=== PATIENT | male | born 1975 | race African-American/Black ===

== ENCOUNTER 2025-01-16 15:38 | Emergency (ER) | payer OTHER ==
[~2025-01-16] VITALS: Ht 180.3 cm; Wt 84.0 kg
[2025-01-16 15:41] VITALS: BP 134/103; PULSE 109; RESP 18; TEMP 98; O2SAT 95
--- NOTE | 2025-01-16 15:53 | ED.PDOC ---
Betzaida. trauma (HPI) HPI Comments A 49 YEAR OLD MALE PRESENTS TO THE ED WITH COMPLAINT OF HEADACHE, NECK PAIN, AND RIGHT SHOULDER PAIN. PATIENT STATES HE WAS AT WORK YESTERDAY AND HE WAS DRIVING HIS FORKLIFT AND A ROLL OF PLASTIC ACCIDENTALLY FELL AND HIT THE RIGHT SIDE OF HIS HEAD AND SHOULDER. PATIENT REPORTS HE IS NOW EXPERIENCING RIGHT- SIDED HEADACHE, NECK PAIN, AND RIGHT SHOULDER PAIN. PATIENT DENIES LOC, FEVER, CHILLS, SHORTNESS OF BREATH, CHEST PAIN, ABDOMINAL PAIN, NAUSEA, VOMITING, OR OTHER COMPLAINTS. NO OTHER SYMPTOMS OR MODIFYING FACTORS AT THIS TIME. PATIENT IS ALERT, ORIENTED X 4, AND HAS STEADY GAIT. Chief Complaint: Head Injury Time Seen by MD: 15:40 Reviewed notes: Nurses Notes, Medications, Allergies Allergies: Coded Allergies: NO KNOWN ALLERGIES (Unverified , 01/16/25) Home Meds Active Scripts Methocarbamol (Methocarbamol) 750 Mg Tab, 750 MG PO BID, #20 TAB Prov:SUZANNE BARNES 01/16/25 Ibuprofen (Ibuprofen) 800 Mg Tab, 1 TAB PO TID, #30 TAB Prov:SUZANNE BARNES 01/16/25 Information Source: Patient Mode of Arrival: Ambulatory Severity: Moderate Timing: Days Duration: Since onset, Days Prehospital treatment: None Location: Head, Neck, (R) Shoulder Location of neck pain: (R) Posterior Location of laceration: None Mechanism: Blunt trauma Associated signs and symtoms: Headache Past Medical History PAST MEDICAL HISTORY: Denies Surgical History: Denies all surgeries Family History Family History: Reviewed,noncontributory to illness Social History Smoker: Non-Smoker Alcohol: Denies ETOH Use Drugs: Denies Drug Use Lives In: Home Constitutional: denies: chills, diaphoresis, fatigue, fever, malaise, sweats, weakness, others EENTM: denies: blurred vision, double vision, ear bleeding, ear discharge, ear drainage, ear pain, ear ringing, eye pain, eye redness, hearing loss, mouth pain, mouth swelling, nasal discharge, nose bleeding, nose congestion, nose pain, photophobia, tearing, throat pain, throat swelling, voice changes, others Respiratory: denies: cough, hemoptysis, orthopnea, SOB at rest, shortness of breath, SOB with excertion, stridor, wheezing, others Cardiovascular: denies: chest pain, dizzy spells, diaphoresis, Dyspnea on exertion, edema, irregular heart beat, left arm pain, lightheadedness, palpitations, PND, syncope, others Gastrointestinal: denies: abdomen distended, abdominal pain, blood streaked bowels, constipated, diarrhea, dysphagia, difficulty swallowing, hematemesis, melena, nausea, poor appetite, poor fluid intake, rectal bleeding, rectal pain, vomiting, others Genitourinary: denies: burning, dysuria, flank pain, frequency, hematuria, incontinence, penile discharge, penile sore, pain, testicle pain, testicle swelling, urgency, others Neurological: reports: headache; denies: dizziness, fainting, left sided numbness, left sided weakness, numbness, paresthesia, pre-existing deficit, right sided numbness, right sided weakness, seizure, speech problems, tingling, tremors, weakness, others Musculoskeletal: reports: joint pain, muscle pain, neck pain, others (RIGHT SHOULDER PAIN); denies: back pain, gout, joint swelling, muscle stiffness Integumetry: denies: bruises, change in color, change in hair/nails, dryness, laceration, lesions, lumps, rash, wounds, others Allergic/Immunocompromised: denies: Difficulty Healing, Frequent Infections, Hives, Itching, others Hematologic/Lymphatic: denies: anemia, blood clots, easy bleeding, easy bruising, swollen glands, others Endocrine: denies: excessive hunger, excessive sweating, excessive thirst, excessive urination, flushing, intolerance to cold, intolerance to heat, unexplained weight gain, unexplained weight loss, others Psychiatric: denies: anxiety, bipolar disorder, depression, hopeless, panic disorder, schizophrenia, sleepless, suicidal, others All Other Systems: Reviewed and Negative Physical Exam General Appearance: No Apparent Distress, Normal HEENT: Head (NO CONTUSIONS AND HEMATOMAS ON SCALP, NO DEFORMITY. ), Normal ENT Inspection, PERRL/EOMI, Pharynx Normal, TMs Normal Neck: Full Range of Motion, Normal Inspection, Supple, Tender Lateral (MUSCLE SPASM ON RIGHT SIDE NECK, NO BONY TENDERNESS, SWELLING AND DEFORMITY. ) Respiratory: Chest Non-Tender, Lungs Clear, No Accessory Muscle Use, No Respiratory Distress, Normal Breath Sounds Cardiovascular: No Edema, No JVD, No Murmur, No Gallop, Normal Peripheral Pulses, Regular Rate/Rhythm Breast Exam: Deferred Gastrointestinal: No Organomegaly, Non Tender, No Pulsatile Mass, Normal Bowel Sounds, Soft Genitalia: Deferred Pelvic: Deferred Rectal: Deferred Extremities: Decreased range of motion (SLIGHTLY. ), No calf tenderness, Normal capillary refill, Normal inspection, No pedal edema, Tender (ON RIGHT SHOULDER, NO BONY TENDERNESS, SWELLING AND DEFORMITY. ) Musculoskeletal : Apperance: Normal Neurologic: Alert, corporate auditor II-XII nml as Tested, No Motor Deficits, Normal Affect, Normal Mood, No Sensory Deficits Cerebellar Function: Normal Reflexes: Normal Skin: Dry, Normal Color, Warm Peripheral Pulses: 2+ carotid (R), 2+ carotid (L), 2+ Radial (R), 2+ Radial (L) Lymphatic: No Adenopathy Was a procedure done? Was a procedure done?: No Differential Diagnosis Multiple Trauma: Closed Head Injury, Fractures, Cerebral Contusion, Contusion, Other (MUSCLE STRAIN OF RIGHT SHOULDER, CLAVICLE FRACTURE) Neck Injury: Cervical Muscle Spasm, Cervical Sprain, Cervical Strain, Cervical Fracture X-Ray, Labs, Meds, VS Vital Signs Date Time Temp Pulse Resp B/P (MAP) Pulse Ox O2 Delivery O2 Flow Rate FiO2 01/16/25 15:41 98.0 109 18 134/[address] HEAD WITHOUT CONTRAST INDICATION: INJURY COMPARISON: XY SKULL 4 VIEWS on DOS: 01/15/25 TECHNIQUE: CT of the head without intravenous contrast. RADIATION DOSE: CTDIvol: 66 mGy, DLP: 1236 mGy*cm FINDINGS: There is no evidence of acute intracranial hemorrhage, extra-axial collection, mass effect, midline shift, herniation or hydrocephalus. The ventricles, sulci and cisterns are age appropriate. The vela-white differentiation is intact. The visualized paranasal sinuses and mastoid air cells are clear. The surrounding soft tissues and osseous structures are unremarkable. IMPRESSION: 1. No evidence of acute intracranial hemorrhage, mass effect or hydrocephalus. ATED BY: RISA CHERRY MD DICTATED DATE/TIME: 01/16/251626 SIGNED BY: RISA CHERRY MD SIGNED DATE/TIME: 01/16/251626 CC: CLINICAL INDICATION: INJURY TECHNIQUE: 3 radiographic views of the right shoulder were obtained. Comparison: XY R SHOULDER 2+ VIEW XRAY on DOS: 01/15/25 FINDINGS/IMPRESSION: There are no fractures or dislocations. Arthritic changes are noted acromioclavicular joint. There are no abnormal soft tissue calcifications. HS:Y ATED BY: KELSI MCCLOUD Jr., DO DICTATED DATE/TIME: 01/16/25 163 SIGNED BY: KELSI MCCLOUD Jr., DO SIGNED DATE/TIME: 01/16/25 163 CC: CLINICAL INDICATION: INJURY TECHNIQUE: 3 radiographic views of the cervical spine were obtained. Comparison: None FINDINGS/IMPRESSION: Bony spondylosis and degenerative disc changes throughout the cervical spine worse at 5 6 and 7. There is straightening of the normal cervical lordotic curve which may be secondary to patient positioning or muscle spasm. There is no prevertebral soft tissue swelling Idiopathic calcification is noted posteriorly in the nuchal ligament. HS:Y ATED BY: KELSI MCCLOUD Jr., DO DICTATED DATE/TIME: 01/16/25 163 SIGNED BY: KELSI MCCLOUD Jr., DO SIGNED DATE/TIME: 01/16/25 163 CC: X-Ray, Labs, Meds, VS Comment EXTERNAL MEDICAL RECORDS REVIEWED: [NONE] INDEPENDENT HISTORIANS: [NONE] SOCIAL DETERMINANTS OF HEALTH: [NONE] LABS ORDERED: NONE REVIEWED AND INTERPRETED RESULTS: NONE IMAGING ORDERED: CT BRAIN, XR C-SPINE, XR SHOULDER RT TREATMENTS ORDERED: NONE PROCEDURES PERFORMED: NONE CRITICAL CARE TIME: NONE I HAVE DISCUSSED THE PATIENT WITH THE ATTENDING PHYSICIAN DR. RAMIREZ AND HE AGREES WITH THE PATIENT'S PLAN OF CARE AND DISPOSITION. BASED ON HISTORY OF PRESENT ILLNESS, AND PHYSICAL EXAM, PATIENT WILL BE DISCHARGED HOME. DISCUSSED PLAN FOR DISCHARGE HOME WITH RX [MOTRIN 800MG AND ROBAXIN]. MEDICATION WARNINGS GIVEN. SHARED DECISION MAKING: DISCUSSED WITH PATIENT THAT THEIR WORKUP WAS NORMAL. PATIENT INSTRUCTED TO FOLLOW UP WITH PRIMARY CARE PROVIDER IN 1-2 DAYS FOR RE-E VALUATION OF SYMPTOMS. PATIENT VERBALIZES UNDERSTANDING TO RETURN TO ED FOR NEW OR WORSENING SYMPTOMS OR IF FOLLOW UP WITH PCP CANNOT BE OBTAINED. PATIENT FEELS COMFORTABLE GOING HOME AT THIS TIME. ALL QUESTIONS ADDRESSED AT TIME OF DISCHARGE. Images Reviewed?: Images reviewed and evaluated by me Time of 1ST Reevaluation: 16:52 Reevaluation 1ST: Improved Patient Education/Counseling: Diagnosis, Treatment, Need For Follow Up Family Education/Counseling: Diagnosis, Treatment, Need For Follow Up Medical Screening: No EMC Exist At This Time Departure 1 Departure Time of Disposition: 17:00 Impression: Primary Impression: Acute headache Qualified Codes: G44.319 - Acute post-traumatic headache, not intractable Additional Impressions: Cervical muscle strain Qualified Codes: S16.1XXA - Strain of muscle, fascia and tendon at neck level, initial encounter Muscle strain of right shoulder Qualified Codes: S46.911A - Strain of unspecified muscle, fascia and tendon at shoulder and upper arm level, right arm, initial encounter Disposition: HOME / SELF CARE / HOMELESS Condition: Stable Additional Instructions: FOLLOW-UP WITH [facility] IN 1-2 DAYS. TAKE MEDICATIONS PRESCRIBED. RETURN TO ED FOR ANY NEW OR WORSENING SYMPTOMS. e-Prescriptions Methocarbamol (Methocarbamol) 750 Mg Tab 750 MG PO BID, #20 TAB Prov: SUZANNE BARNES 01/16/25 Ibuprofen (Ibuprofen) 800 Mg Tab 1 TAB PO TID, #30 TAB Prov: SUZANNE BARNES 01/16/25 Discharged With: Self Critical Care Note Critical Care Time?: No Stability Stability form required: No I personally scribed for SUZANNE BARNES ([email or web address]) on 01/16/25 at 15:53. Electronically submitted by Jv Olvera ([employer]). I personally scribed for SUZANNE BARNES ([email or web address]) on 01/16/25 at 16:39. Electronically submitted by Jv Olvera ([employer]). I personally scribed for SUZANNE BARNES ([email or web address]) on 01/16/25 at 16:41. Electronically submitted by Jv Olvera ([employer]). I personally scribed for SUZANNE BARNES ([email or web address]) on 01/16/25 at 16:45. Electronically submitted by Jv Olvera ([employer]). SUZANNE BARNES Jan 16, 2025 15:53
--- NOTE | 2025-01-16 16:30 | DVH ---
CT HEAD WITHOUT CONTRAST INDICATION: INJURY COMPARISON: XY SKULL 4 VIEWS on DOS: 01/15/25 TECHNIQUE: CT of the head without intravenous contrast. RADIATION DOSE: CTDIvol: 66 mGy, DLP: 1236 mGy*cm FINDINGS: There is no evidence of acute intracranial hemorrhage, extra-axial collection, mass effect, midline s hift, herniation or hydrocephalus. The ventricles, sulci and cisterns are age appropriate. The vela -white differentiation is intact. The visualized paranasal sinuses and mastoid air cells are clear. The surrounding soft tissues and osseous structures are unremarkable. IMPRESSION: 1. No evidence of acute intracranial hemorrhage, mass effect or hydrocephalus.
--- NOTE | 2025-01-16 16:35 | DVH ---
CLINICAL INDICATION: INJURY TECHNIQUE: 3 radiographic views of the cervical spine were obtained. Comparison: None FINDINGS/IMPRESSION: Bony spondylosis and degenerative disc changes throughout the cervical spine worse at 5 6 and 7. There is straightening of the normal cervical lordotic curve which may be secondary to patient positi oning or muscle spasm. There is no prevertebral soft tissue swelling Idiopathic calcification is noted posteriorly in the nuchal ligament. HS:Y
--- NOTE | 2025-01-16 16:37 | DVH ---
CLINICAL INDICATION: INJURY TECHNIQUE: 3 radiographic views of the right shoulder were obtained. Comparison: XY R SHOULDER 2+ VIEW XRAY on DOS: 01/15/25 FINDINGS/IMPRESSION: There are no fractures or dislocations. Arthritic changes are noted acromioclavicular joint. There are no abnormal soft tissue calcifications. HS:Y
[2025-01-16] MEDS ORDERED: IBUP-1456 PO (16:48)
[2025-01-16] MEDS ORDERED: METH-1182 PO (16:48)
== END 2025-01-16 16:51 | disposition home or self-care (01) ==
LOC: ER 15:38
DX: S16.1XXA Strain of muscle, fascia and tendon at neck level, initial encounter (principal); S46.811A Strain of other muscles, fascia and tendons at shoulder and upper arm level, right arm, initial encounter; G44.319 Acute post-traumatic headache, not intractable; W18.39XA Other fall on same level, initial encounter; Y93.89 Activity, other specified; Y92.89 Other specified places as the place of occurrence of the external cause; Y99.8 Other external cause status
CPT/HCPCS: 70450; 72040; 73030